=== PATIENT | female | born 1975 | race Caucasian/White ===

== ENCOUNTER → 2016-07-04 | Outpatient (CLI) | payer OTHER | LOC: HEART 5 09:27 | DX: R00.2 Palpitations (principal); R00.0 Tachycardia, unspecified ==

== ENCOUNTER → 2016-08-06 | Outpatient (CLI) | payer OTHER | LOC: HEART 5 08:00 | DX: R00.2 Palpitations (principal); R00.0 Tachycardia, unspecified ==

== ENCOUNTER → 2021-08-01 | Outpatient (CLI) | payer OTHER ==
[2021-08-01 14:29] LABS: HEMOGLOBIN 15.2 gm/dl (12.3-15.3); RED BLOOD COUNT 4.95 M/UL (4.00-5.10); WHITE BLOOD COUNT 5.4 K/UL (4.5-11.0)
[2021-08-01 14:49] LABS: BUN/CREATININE RATIO 11 (0-10)
== END ==
LOC: LAB 13:52
PROVIDERS: Nurse Practitioner Family
DX: R53.83 Other fatigue (principal); B37.9 Candidiasis, unspecified
CPT/HCPCS: 36415; 80053; 80061; 82607; 82746; 83036; 83540; 83550; 83690; 84439; 84443; 85025

== ENCOUNTER → 2021-08-14 | Outpatient (CLI) | payer OTHER | LOC: US 09:53 | DX: Z53.9 Procedure and treatment not carried out, unspecified reason (principal) | CPT/HCPCS: 76642-LT ==